=== PATIENT | male | born 1955 | race Caucasian/White ===

== ENCOUNTER 2018-03-29 07:42 | Outpatient (CLI) | payer BC ==
--- NOTE | 2018-03-29 09:02 | ULT ---
SCROTAL ULTRASOUND: INDICATIONS: Concern for undescended left testicle. TECHNIQUE: Garcia-scale, color-flow Doppler, and vascular duplex was performed of the scrotal region and the left inguinal region. FINDINGS: The right testicle measures 4.4 x 2.2 x 1.9 cm. There is normal flow to the right testicle. There i s no evidence of an intratesticular mass. The visualized epididymis appears within normal limits. T here is a 1.1 cm right epididymal head cyst. No visible testicle is demonstrated within the left scrotal sac. There is an elongated, hypoechoic, serpiginous appearing structure within the left testicle, suspicious for a deformed, undescended test icle within the left inguinal canal, measuring 1.2 x 0.9 x 0.7 cm. There is vascular flow to this structure within the left inguinal canal. IMPRESSION: 1. Small suspected undescended testicle within the left inguinal canal, measuring up to 1.2 x 0.9 cm . 2. Right epididymal head cyst. 3. The right testicle is within the scrotal sac, without evidence of torsion or intratesticular mass . POS: [facility]
== END 2018-03-29 07:43 | disposition home or self-care (01) ==
LOC: SCSULT 07:42
PROVIDERS: ATTEND Urology
DX: Q53.9 Undescended testicle, unspecified (principal); N50.3 Cyst of epididymis
CPT/HCPCS: 76870; 93976

== ENCOUNTER 2019-08-13 06:11 | Outpatient (CLI) | payer BC ==
[2019-08-13 09:28] LABS: #Eosinphils 0.2 thou/uL (0.0-0.7); #Lymphocytes 0.6 thou/uL (1.20-3.40); #Monocytes 0.5 thou/uL (0.11-0.59); #Neutrophils 2.8 thou/uL (1.40-6.50); %Basophils 1.1 % (0.0-1.0); %Eosinophils 3.9 % (0.0-10.0); %Lymphocytes 13.8 % (21.0-51.0); %Monocytes 12.7 % (0.0-10.0); %Neutrophils 68.5 % (42.0-75.0); Mean Corpuscular Hemoglobin 31.1 pg (27.0-31.0); Mean Corpuscular Volume 94.2 fL (78.0-98.0); Mean Platelet Volume 7.8 fL (7.4-10.4); Platelet Count 151 thou/uL (130-400); RBC Distribution Width 12.4 % (11.5-14.5); Red Blood Cell (RBC) Count 4.81 mill/uL (4.70-6.10); White Blood Cell (WBC) Count 4.1 thou/uL (4.8-10.8)
[2019-08-13 09:41] LABS: Anion Gap 14 mmol/L (10-20); BUN (Urea Nitrogen) 18 mg/dL (8.4-25.7); Calc. Creatinine Clearance 0 mL/min (70-130); Calcium 9.4 mg/dL (7.8-10.44); Carbon Dioxide 25 mmol/L (23-31); Chloride 106 mmol/L (98-107); Estimated GFR-MDRD 62; Glucose 111 mg/dL (80-115); Potassium 4.6 mmol/L (3.5-5.1); Sodium 140 mmol/L (136-145)
== END 2019-08-13 06:12 | disposition home or self-care (01) ==
LOC: LABBT 06:11
PROVIDERS: ATTEND Surgery
DX: Z01.818 Encounter for other preprocedural examination (principal); K64.8 Other hemorrhoids
CPT/HCPCS: 80048; 85025; 93005; 93010

== ENCOUNTER 2019-08-14 07:17 | Day surgery (SDC) | payer BC ==
[2019-08-13 08:09] VITALS: BMI 26.5
[2019-08-14] MEDS ORDERED: ceFOXitin 2 GM/50 ML Duplex BAG ONE (08:25)
[2019-08-14] MEDS ORDERED: Bupivacaine 0.25% HCL 30 ML VIAL ONE (11:01)
[2019-08-14] MEDS ORDERED: Lidocaine 1% w/Epinephrine 1:100K 20 ML VIAL ONE (11:01)
[2019-08-14] MEDS ORDERED: Lidocaine 2% Jelly 5 ML TUBE ONE (11:01)
[2019-08-14] MEDS ORDERED: Fentanyl 100 MCG/2 ML VIAL ONE (11:05)
[2019-08-14] MEDS ORDERED: PROPOFOL 200 MG/20 ML VIAL ONE (13:08)
[2019-08-14] MEDS ORDERED: Ondansetron PF 4 MG/2 ML Vial ONE (13:08)
[2019-08-14] MEDS ORDERED: Glycopyrrolate 0.2 MG/ML 5 ML SYRINGE ONE (13:08)
[2019-08-14] MEDS ORDERED: Dexamethasone 20 MG/5 ML VIAL ONE (13:08)
[2019-08-14] MEDS ORDERED: Rocuronium Bromide 10 MG/ML (10ML VIAL) ONE (13:08)
[2019-08-14] MEDS ORDERED: Ketorolac Tromethamine 30 MG/ML VIAL ONE (13:08)
[2019-08-14] MEDS ORDERED: Lidocaine 1% PF 5 ML VIAL ONE (13:08)
--- NOTE | 2019-08-14 19:43 | OP ---
DATE OF PROCEDURE: 08/14/2019 PREOPERATIVE DIAGNOSIS: Prolapsing internal hemorrhoids, external hemorrhoids. POSTOPERATIVE DIAGNOSIS: Prolapsing internal hemorrhoids, external hemorrhoids. PROCEDURES: 1. PPH-stapled hemorrhoidectomy. 2. External hemorrhoids x2. ANESTHESIA: General. ESTIMATED BLOOD LOSS: Minimal. COMPLICATIONS: None. SPECIMEN: Hemorrhoids. TECHNIQUE: Patient was taken to the operating table. After general anesthetic was obtained, he was placed in the prone sb-knife position. His buttock crease was taped open. Anal digital exam revealed no obvious anal canal mass. The obturator and sphincter protector were placed and sewn to the perianal skin using silk. The suture rider was used to place a pursestring suture 2 cm above the dentate line. The stapler was opened to its fullest extent. The anvil placed above the pursestring. The pursestring sutures were pulled through the stapler as tension held on these. The stapler was tightened down into the green zone and fired. There was a good ring of hemorrhoid tissue obtained. A few bleeders on the staple line were oversewn using Vicryl suture. There was no significant bleeding. Most of the prolapse of the anal canal had gone away. There were 2 small external hemorrhoids that were removed using LigaSure. Care was taken to avoid damage to the sphincter muscle. Gelfoam and lidocaine jelly packed in the anal canal. Patient was sent to Recovery in stable condition. All instrument counts, needle counts, and lap counts are correct. Job ID: [id number]
== END 2019-08-14 13:37 | disposition home or self-care (01) ==
LOC: SDC 07:17
PROVIDERS: ATTEND Surgery
PROC: 06BY0ZC Excision of Hemorrhoidal Plexus, Open Approach (ICD-10-PCS; principal; 2019-08-14)
DX: K64.8 Other hemorrhoids (principal); K64.4 Residual hemorrhoidal skin tags; E78.5 Hyperlipidemia, unspecified; J45.909 Unspecified asthma, uncomplicated; Z79.899 Other long term (current) drug therapy
CPT/HCPCS: 88304; J0694; J1100; J1885; J2001; J2405; J2704; J3010; S0020